=== PATIENT | male | born 1985 ===

== ENCOUNTER 2016-08-28 01:56 | Emergency (ER) | payer SELFPAY ==
[~2016-08-28] VITALS: Ht 175.3 cm; Wt 88.6 kg
== END 2016-08-28 02:33 | disposition home or self-care (01) ==
LOC: EDBD → MERGE 01:59 → ED 01:59
DX: F41.1 Generalized anxiety disorder (principal); R07.89 Other chest pain
CPT/HCPCS: 99281; 99282